=== PATIENT | female | born 1995 | race Two or more races ===

== ENCOUNTER 2020-05-21 06:33 | Day surgery (SDC) | payer MEDICAID ==
[~2020-05-21] VITALS: Ht 160 cm; Wt 115.7 kg
[~2020-05-21 06:33] MED LIST: PAROXETINE HCL10 MG PO; VISTARIL25 MG PO
[2020-05-21 07:19] LABS: HCG SERUM NEGATIVE (NEGATIVE)
[2020-05-21 07:45] LABS: HEMATOCRIT 42.2 % (36.0-48.0); HEMOGLOBIN 14.1 g/dL (12-16); MCH 30.6 pg (26.0-34.0); MCHC 33.4 g/dL (31.0-37.0); MCV 91.5 fL (80.0-100.0); MEAN PLATELET VOLUME 10.1 fL (7.4-10.4); RBC 4.61 10x6/uL (4.00-5.40); RDW 13.2 % (11.5-14.5)
[2020-05-21 08:04] VITALS: BP 123/75; Ht 160 cm; Wt 115.7 kg
--- NOTE | 2020-05-21 12:17 | NUR ---
1150 IV REMOVED AND PT COLOR GOOD. NO PAIN OR NAUSEA OR VAG BLEEDING
== END 2020-05-21 12:05 | disposition home or self-care (01) ==
LOC: D.OPS 06:33
PROVIDERS: Anesthesiology; ATTEND Obstetrics & Gynecology Maternal & Fetal Medicine
DX: R10.2 Pelvic and perineal pain (principal); N94.89 Other specified conditions associated with female genital organs and menstrual cycle